=== PATIENT | female | born 1985 | race American Indian/Alaskan Native ===

== ENCOUNTER 2019-03-11 22:08 | Emergency (ER) | payer BC ==
[2019-03-11 22:26] VITALS: BP 114/78
--- NOTE | 2019-03-12 00:03 | Emergency Department Report ---
ED ENT HPI - General Chief complaint: Sore Throat Stated complaint: SORE THROAT Time Seen by Provider: 03/11/19 23:19 Source: patient Mode of arrival: Ambulatory Limitations: No Limitations - History of Present Illness Initial comments: She is a 33-year-old female presents with right ear pain that began today. pt has associated sore throat. She denies any pain with swallowing, fever, ear drainage. States she has a past medical history of DVT while she was on control. States she has an allergy to penicillin. [facility] February 27. - Related Data Allergies Allergy/AdvReac Type Severity Reaction Status Date / Time Penicillins Allergy Unknown Verified 03/11/19 22:26 ED Dental HPI - General Chief complaint: Sore Throat Stated complaint: SORE THROAT Time Seen by Provider: 03/11/19 23:19 Source: patient Mode of arrival: Ambulatory Limitations: No Limitations - Related Data Allergies Allergy/AdvReac Type Severity Reaction Status Date / Time Penicillins Allergy Unknown Verified 03/11/19 22:26 ED Review of Systems ROS: Stated complaint: SORE THROAT Other details as noted in HPI Comment: All other systems reviewed and negative ED Past Medical Hx - Past Medical History Previous Medical History?: No - Surgical History Past Surgical History?: No - Social History Smoking Status: Never Smoker Substance Use Type: None ED Physical Exam - General Limitations: No Limitations General appearance: alert, in no apparent distress - Head Head exam: Present: atraumatic, normocephalic - Eye Eye exam: Present: normal appearance, PERRL, EOMI. Absent: conjunctival injection, periorbital swelling, periorbital tenderness - ENT ENT exam: Present: normal orophraynx, mucous membranes moist, TM's normal bilaterally, normal external ear exam - Neck Neck exam: Absent: lymphadenopathy - Respiratory Respiratory exam: Present: normal lung sounds bilaterally. Absent: respiratory distress, wheezes, rales, rhonchi, stridor, chest wall tenderness, accessory muscle use, decreased breath sounds, prolonged expiratory - Cardiovascular Cardiovascular Exam: Present: regular rate, normal rhythm, normal heart sounds. Absent: systolic murmur, diastolic murmur, rubs, gallop - Neurological Exam Neurological exam: Present: alert, oriented X3 - Psychiatric Psychiatric exam: Present: normal affect, normal mood - Skin Skin exam: Present: warm, dry, intact. Absent: rash ED Course Vital Signs 03/11/19 22:24 Temperature 98.2 F Pulse Rate 84 Respiratory 18 Rate Blood Pressure 114/78 O2 Sat by Pulse 100 Oximetry ED Medical Decision Making - Medical Decision Making She is a 33-year-old female presents with right ear pain that began today. pt has associated sore throat. She denies any pain with swallowing, fever, ear drainage. States she has a past medical history of DVT while she was on control. States she has an allergy to penicillin. [facility] February 27. vitals are normal. VSS. on exam: normal oropharynx, no tonsillar exudates no tonsillar hypertrophy, normal turbinates, normal TMs and canals bilaterally, clear breath sounds bilaterally. symptoms could be viral vs allergy related advised pt to use symptomatic treatment. advised pt to please drink plenty of fluids. May take Tylenol or ibuprofen for any discomfort. Follow up with a primary care doctor the next 2-3 days for reevaluation. Return to the emergency room for any new or worsening symptoms. - Differential Diagnosis otitis media, otitis externa, strep, URI, viral syndrome Critical care attestation.: If time is entered above; I have spent that time in minutes in the direct care of this critically ill patient, excluding procedure time. ED Disposition Clinical Impression: Right ear pain, Sore throat Disposition: DC-01 TO HOME OR SELFCARE Is pt being admited?: No Does the pt Need Aspirin: No Condition: Stable Instructions: Viral Syndrome (ED) Additional Instructions: Please drink plenty of fluids. May take Tylenol or ibuprofen for any discomfort. Follow up with a primary care doctor the next 2-3 days for reevaluation. Return to the emergency room for any new or worsening symptoms. Referrals: [facility] [Provider Group] - 2-[address] [facility] [Outside] - 2-[address] [facility] [Outside] - 2-3 Days Forms: Work/School Release Form(ED) Time of Disposition: 00:02 Print Language: LATVIAN
== END 2019-03-12 00:10 | disposition home or self-care (01) ==
LOC: ED 22:08
DX: H92.01 Otalgia, right ear (principal); J02.9 Acute pharyngitis, unspecified; Z88.0 Allergy status to penicillin; Z86.718 Personal history of other venous thrombosis and embolism
CPT/HCPCS: 99282